=== PATIENT | female | born 1980 | race Caucasian/White ===

== ENCOUNTER 2024-06-06 14:18 | Emergency (ER) | payer BC, SELFPAY ==
[2024-06-06 14:28] VITALS: BP 169/83
[2024-06-06 14:52] LABS: % Basophils 0.7 % (0-2); % Eosinophils 7.1 % (0-6); % Immature Granulocytes 0.2 % (0-0.5); % Monocytes 9.5 % (1.7-9.3); % Neutrophils 60.5 % (42.2-75.2); Absolute Eosinophils 0.4 10^3/uL (0-0.7); Absolute Lymphocytes 1.2 10^3/uL (1.2-3.4); Absolute Monocytes 0.5 10^3/uL (0.1-0.6); Absolute Neutrophils 3.3 10^3/uL (1.4-6.5); Hematocrit 40.2 % (37.0-47.0); Hemoglobin 13.6 g/dL (12.0-16.0); Mean Corp Hgb Conc. 33.8 g/dL (33.0-37.0); Mean Corpuscular Hgb 26.5 pg (27.0-31.0); Mean Corpuscular Volume 78.4 fL (81.0-99.0); Mean Platelet Volume 9.4 fL (7.4-10.4); Nucleated Red Blood Cells % 0 %; Platelet Count 339 10^3/uL (130-400); Red Blood Cell Count 5.13 10^6/uL (4.20-5.40); Red Cell Dist. Width 14.5 % (11.5-14.5); White Blood Cell Count 5.5 10^3/uL (4.8-10.8)
[2024-06-06 15:06] LABS: ALT (SGPT) 14 U/L (0-35); AST (SGOT) 19 U/L (14-36); Albumin 4.6 g/dl (3.5-5.0); Alkaline Phosphatase 94 U/L (38-126); Blood Urea Nitrogen 18 mg/dl (7-17); Calcium 9.9 mg/dl (8.4-10.2); Carbon Dioxide 23 mmol/L (22-30); Chloride 105 mmol/L (98-107); Glucose 113 mg/dl (70-99); Potassium 3.5 mmol/L (3.5-5.1); Sodium 140 mmol/L (135-145); Total Bilirubin 0.5 mg/dl (0.2-1.3); Total Protein 7.8 g/dl (6.3-8.2); eGFR > 60.00
--- NOTE | 2024-06-06 19:41 | ED.GENMED ---
History of Present Illness
General
Chief Complaint: Weakness
Source: patient
Exam Limitations: none
Time Seen by Provider: 06/06/24 19:41
Nursing documentation reviewed up to this point in time: agreed with
History of Present Illness
History of Present Illness:
This is a 43-year-old female with past medical history of hypertension, asthma who presents emergency department today with concerns of generalized weakness for the past week. Patient states that since April, she has been persistently sick on and
off. Patient states that her children had COVID and the flu and she has been having on and off cough. She also reports that her children had a stomach bug this past week and she had a lot of nausea and vomiting the past 3 days which have since
subsided. She denies any abdominal pain. She denies any fevers or chills. She is primarily concerned today about this sensation she has in her chest which started last night before she went to bed. She states that she feels tightness in her
chest which feels similar to when she had asthma exacerbations and she has had some intermittent wheezing however she feels that she has a lot of pain with inspiration which she has never had before. Patient denies any recent long distance travel
any recent hospitalizations any recent surgeries, any redness or swelling in the lower extremities. Patient is taken her albuterol inhaler at home yesterday without relief, she did not have any inhaled steroids today.
Review of Systems
Review of Systems
All Other Systems: ROS reviewed and negative except as documented in HPI and ROS
Phy Exam
Physical Exam
Physical Exam:
General: Patient is well appearing and in no acute distress; non-toxic
Skin: Warm and dry, no rashes or lesions
Head: Normocephalic, atraumatic
Eyes: Sclera non-icteric. EOMs intact.
Cardiac: Tachycardia noted otherwise regular rhythm, no murmurs
Peripheral Vascular: No lower extremity swelling or edema, negative Homans' sign bilaterally
Pulm: Normal respiratory effort, scattered wheezes on the right
Abdomen: No abdominal tenderness to palpation
Neuro: CN II-XII intact, no focal neurologic deficits.
Psychiatric: Appropriate mood and affect.
Scores
PERC Rule Criteria
Age <50 years: Yes
HR <100 bpm: No
Room air oxygen sat >94%: Yes
History of DVT or PE: No
Recent trauma or surgery: No
Hemoptysis: No
Exogenous estrogen: No
Clinical signs suggestive of DVT: No
: No
Considered low risk for PE: Yes
PERC Score: 1
PE can be excluded by PERC: No
Course
Orders/Labs/Results
Orders:
Orders
06/06/24 14:31
Electrocardiogram (*1) Urgent
Reason for Study: Chest Pain
EKG- Treatment ONCE
06/06/24 14:42
Complete Blood Count/With Diff Urgent
Comprehensive Metabolic Panel Urgent
HCG, Serum Qualitative Screen Urgent
Comment: ADD ON
Influenza A+B Rapid Molecular Urgent
PAT Source: Nasal Swab
Specimen Description:
06/06/24 19:58
0.9% Sodium Chloride 1000 ml [Nss] 1,000 ml IV BOLUS
Acetaminophen [Tylenol] 1,000 mg PO NOW STA
CR Chest - 2 Views Urgent
Comment:
Reason For Exam: chest pain, shortness of breath
06/06/24 20:24
Dexamethasone Sod Phosphate [Decadron] 10 mg IV NOW STA
06/06/24 20:47
D-Dimer Urgent
Troponin I Urgent
06/06/24 21:38
CT Chest PE Study Urgent
Comment:
Reason For Exam: shortness of breath, chest pain
06/06/24 21:42
Add On- LAB Urgent
Tests Added?: hcg qual
Abnormal Lab Results
06/06/24 06/06/24
14:42 20:47
MCV 78.4 L fL
(81.0-99.0)
MCH 26.5 L pg
(27.0-31.0)
Monocytes % 9.5 H %
(1.7-9.3)
Eosinophils % 7.1 H %
(0-6)
D-Dimer 0.52 H ug/mlFEU
(0.00-0.50)
BUN 18 H mg/dl
(7-17)
Creatinine 0.4 L mg/dL
(0.6-1.0)
Glucose 113 H mg/dl
(70-99)
06/06/24 14:42
06/06/24 14:42
Vital Signs
Initial and Last Documented VS:
Initial Vital Signs
Temp Pulse Resp BP Pulse Ox
98.2 F 104 16 169/83 98
06/06/24 14:28 06/06/24 14:28 06/06/24 14:28 06/06/24 14:28 06/06/24 14:28
Last Documented Vital Signs
Temp Pulse Resp BP Pulse Ox
98.2 F 100 18 160/86 98
06/06/24 14:28 06/06/24 23:46 06/06/24 23:46 06/06/24 23:46 06/06/24 23:46
MDM/Problems Addressed
Differential Diagnosis Includes:
Differentials include asthma exacerbation, viral syndrome, pneumonia, PE
MDM/Problems Addressed:
43-year-old female presents emergency department today with a week of generalized weakness. Last night, she started develop chest pain with inspiration intermittent shortness of breath. She does have some wheezing on her right lung base. She did
not take any steroid inhalers today. On exam she is tachycardic and not febrile. Consider patient is tachycardic with no clear explanation, has pleuritic chest pain, D-dimer was obtained which was elevated at 1.52. Proceeded with CAT scan of the
chest which was negative for PE negative for pneumonia. Suspect asthma exacerbation in light of recent viral illnesses. Patient was given a bag of IV fluids as well as a dose of Decadron and she does feel like this improved her symptoms. Patient
stable for discharge. Discussed follow-up with primary care provider.
Chronic conditions affecting care:
Asthma, hip hypertension, hyperlipidemia
*Pulse Oximetry
Patient hypoxic: no
*EKG
Interpreted by ED Provider?: Yes
EKG Intrepretation Date: 06/06/24
Interpretation: normal
Comparison EKG: no changes
Heart Rate: 83
Rate: normal
Rhythm: sinus
Pathfork: normal axis
Interval: normal interval
*Critical Care Note
Total Time (30-74mins, 75-104mins- exclusive of procedures): Not Applicable
Data Reviewed
Review of Other/Old Records Reveals: Records (Reviewed ER physician documentation from 04/28/2023 patient seen for shortness of breath patient treated empirically with Z-Surendra prednisone inhaler)
Source: patient and records
Patient Management
Escalation/DeEscalation of care consider admission/obs:
Admit not indicated, patient stable for discharge, case discussed with my attending
ED Attending Note
-
Portions of this chart may have been created with voice recognition software.� Occasional wrong word or��sound alike� substitutions may have occurred due to the inherent limitations of voice recognition software.
Discharge Plan
Departure
Patient Disposition: Home (Routine Discharge)
Date of Disposition: 06/07/24
Time of Disposition: 00:04
Patient with high blood pressure during this ER visit?: Yes
Condition: Good
Discharge Problem:
Chest discomfort, Generalized weakness
Instructions: Generalized Weakness (DC), Asthma in adults - Discharge instructions, BLOOD PRESSURE
Prescriptions:
New
prednisone 20 mg tablet
40 mg PO DAILY 5 Days Qty: 10 0RF
No Action
albuterol sulfate [ProAir HFA] 90 mcg/actuation Hfa Aerosol Inhaler
2 puff INHALATION Q4HPRN PRN (Reason: shortness of breath) Qty: 8.5 0RF
prednisone 50 mg Tablet
50 mg PO DAILY Qty: 2 0RF
azithromycin 250 mg tablet
250 mg PO DAILY 4 Days Qty: 4 0RF
benzonatate 100 mg capsule
100 mg PO TID PRN (Reason: Cough) Qty: 14 0RF
Referrals:
Jeremy Mosher MD [Family Provider] -
Activity Restrictions/Additional Instructions:
Your CAT scan of the chest did not show any evidence of pulmonary embolism or pneumonia.
Prednisone has been sent to your pharmacy. Please take 40 mg once daily for 5 days.
Please follow-up with your primary care provider in 1 week for reassessment and for a blood pressure recheck.
PLEASE RETURN EMERGENCY DEPARTMENT SHOULD YOU DEVELOP AN ACUTE WORSENING OF YOUR SYMPTOMS, SHORTNESS OF BREATH, FEVERS AND CHILLS, TROUBLE SWALLOWING, WEAKNESS ONE-SIDED BODY VERSUS OTHER, FAINTING SPELLS, DIZZINESS, LIGHTHEADEDNESS, OR ANY OTHER
SIGNS OR SYMPTOMS WORRISOME TO YOU.
Interventions
Interventions:
*Risk Screen - Suicide Last Done: 06/06/24 14:28
*General Assessment Last Done: 06/06/24 16:50
*Neglect/Abuse Screening Last Done: 06/06/24 14:28
*ED COVID-19 Vaccine History Last Done: 06/06/24 16:50
*Nursing Disposition Last Done: 06/06/24 23:47
ED- Cardiac Assessment Last Done: 06/06/24 16:50
ED- Neurological Assessment Last Done: 06/06/24 16:50
ED- Pulmonary Assessment Last Done: 06/06/24 16:50
Discharge Date and Time
Discharge Date/Time: 06/07/24 00:28
Print Language: SWAZI
[2024-06-06] MEDS: NSS 1000 IV (20:53)
[2024-06-06] MEDS: TYLENOL 1000 MG PO (20:53)
[2024-06-06] MEDS: DECADRON 10 MG IV (20:55)
[2024-06-06 21:12] LABS: D-Dimer 0.52 ug/mlFEU (0.00-0.50)
[2024-06-06 21:22] LABS: Troponin I < 0.012 ng/ml
[2024-06-06 22:20] LABS: HCG, Serum Qualitative Screen Negative
[2024-06-06 23:46] VITALS: BP 160/86
== END 2024-06-07 00:28 | disposition home or self-care (01) ==
LOC: EMR 14:18
PROVIDERS: Emergency Medicine; Physician Assistant; EMERGENCY PHYSICIAN Emergency Medicine; FAMILY PHYSICIAN Family Medicine
DX: R07.89 Other chest pain (principal); R53.1 Weakness; I10 Essential (primary) hypertension; E78.5 Hyperlipidemia, unspecified; J45.909 Unspecified asthma, uncomplicated
CPT/HCPCS: 99285; 96374; 96361; 71046; 71275; 80053; 84484; 84703; 85025; 85379; 87502; 93005; Q9967